=== PATIENT | male | born 1945 | race Caucasian/White ===

== ENCOUNTER 2019-04-25 00:39 | Observation (INO) ==
[2019-04-25] MEDS ORDERED: PANTOPRAZOLE 40 MG VIAL IV STA (01:03)
[2019-04-25] MEDS ORDERED: SODIUM CHLORIDE 0.9% 1,000 ML IV STA (01:03)
[2019-04-25 01:11] LABS: Basophils % 0.5 % (0.0-0.8); Eosinophils # 0.2 10*3/uL (0.0-0.87); Eosinophils % 2.1 % (0.00-10.9); Hematocrit 35.5 VOL% (42.0-52.0); Hemoglobin 12.2 GM/DL (14.0-18.0); Immature Granulocytes % 0.5 %; Immature Granulocytes Absolute 0.04 #; Lymphocytes # 2.9 10*3/uL (1.4-4.0); Lymphocytes % 39.7 % (21.2-54.2); Mean Corpuscular HGB Conc 34.4 GM/DL (32-36); Mean Corpuscular Volume 94.4 FL (87-102); Mean Platelet Volume 10.7 FL (9.6-12.0); Monocytes % 9.7 % (1.7-12.7); Neutrophils % 47.5 % (38.7-73.9); Platelet Count 158 T/CUMM (130-400); Red Blood Count 3.76 MC/CUMM (3.8-5.5); Red Cell Distribution Width 11.6 % (9.3-17.3); White Blood Count 7.3 T/CUMM (4-12)
[2019-04-25 01:17] LABS: INR 1.1; PT Patient Result 11.9 SECS (9.6-12.2); Partial Thromboplastin Time 21.9 SECS (20.8-36.0)
[2019-04-25 01:25] LABS: Albumin 3.5 G/DL (3.4-5.0); Bilirubin,Total 0.8 MG/DL (0.2-1.0); Calcium 8.1 MG/DL (8.5-10.1); Osmolality,Calculated 289.1 MOS/KG (273-304); Total Protein 6.6 G/DL (6.4-8.3)
[2019-04-25] MEDS ORDERED: ONDANSETRON 4 MG/2 ML VIAL IV PRN (03:56)
[2019-04-25] MEDS ORDERED: ACETAMINOPHEN 325 MG TABLET PO PRN (03:56)
[2019-04-25] MEDS: SODIUM CHLORIDE 0.45% 1,000 ML IV SCH ×3 (06:30→16:39)
[2019-04-25 08:02] LABS: Hematocrit 33.2 VOL% (42.0-52.0); Hemoglobin 11.2 GM/DL (14.0-18.0)
[2019-04-25 08:31] LABS: Calcium 7.8 MG/DL (8.5-10.1); Osmolality,Calculated 282.4 MOS/KG (273-304)
[2019-04-25] MEDS ORDERED: PANTOPRAZOLE 40 MG TABLET PO SCH (09:00)
[2019-04-25 13:56] LABS: Hematocrit 32.3 VOL% (42.0-52.0); Hemoglobin 10.7 GM/DL (14.0-18.0)
[2019-04-25 19:00] LABS: Hematocrit 30.7 VOL% (42.0-52.0); Hemoglobin 10.5 GM/DL (14.0-18.0)
[2019-04-25] MEDS: PANTOPRAZOLE 40 MG TABLET PO SCH (20:20)
[2019-04-26 01:17] LABS: Hematocrit 30.9 VOL% (42.0-52.0); Hemoglobin 10.3 GM/DL (14.0-18.0)
[2019-04-26] MEDS: SODIUM CHLORIDE 0.45% 1,000 ML IV SCH ×3 (06:09→15:20)
[2019-04-26 08:35] LABS: Hematocrit 31.9 VOL% (42.0-52.0); Hemoglobin 10.9 GM/DL (14.0-18.0)
[2019-04-26] MEDS: BISACODYL 5 MG TABLET PO SCH ×3 (10:06→22:00)
[2019-04-26] MEDS: PANTOPRAZOLE 40 MG TABLET PO SCH ×2 (10:06→21:07)
[2019-04-26 13:41] LABS: Hematocrit 34.4 VOL% (42.0-52.0); Hemoglobin 11.5 GM/DL (14.0-18.0)
[2019-04-26] MEDS ORDERED: POLYETHYLENE GLYCOL POWDER 255 GM BOTTLE PO ONE (18:00)
[2019-04-26] MEDS ORDERED: MAGNESIUM CITRATE 300 ML BOTTLE PO ONE (21:00)
[2019-04-27] MEDS: SODIUM CHLORIDE 0.45% 1,000 ML IV SCH (01:20)
[2019-04-27 05:16] LABS: Basophils % 0.5 % (0.0-0.8); Eosinophils # 0.2 10*3/uL (0.0-0.87); Eosinophils % 3.1 % (0.00-10.9); Hematocrit 31.6 VOL% (42.0-52.0); Immature Granulocytes % 0.4 %; Immature Granulocytes Absolute 0.02 #; Lymphocytes # 1.9 10*3/uL (1.4-4.0); Lymphocytes % 34.3 % (21.2-54.2); Mean Corpuscular HGB Conc 34.8 GM/DL (32-36); Mean Corpuscular Volume 94.9 FL (87-102); Mean Platelet Volume 10.7 FL (9.6-12.0); Monocytes % 14.4 % (1.7-12.7); Neutrophils % 47.3 % (38.7-73.9); Platelet Count 158 T/CUMM (130-400); Red Blood Count 3.33 MC/CUMM (3.8-5.5); Red Cell Distribution Width 11.6 % (9.3-17.3); White Blood Count 5.6 T/CUMM (4-12)
[2019-04-27 05:43] LABS: Calcium 8.4 MG/DL (8.5-10.1); Osmolality,Calculated 277.4 MOS/KG (273-304)
[2019-04-27] MEDS ORDERED: SODIUM CHLORIDE 0.9% 1,000 ML IV SCH (07:00)
[2019-04-27] MEDS: PANTOPRAZOLE 40 MG TABLET PO SCH (08:29)
[2019-04-27] MEDS ORDERED: LIDOCAINE 2% 5 ML VIAL ONE (10:00)
[2019-04-27] MEDS ORDERED: propofoL 200 MG/20 ML VIAL IV ONE (10:00)
[2019-04-27 15:46] VITALS: BP 135/73
== END 2019-04-27 15:45 | disposition home or self-care (01) ==
LOC: EDUNIT# → EDBD → N.ED 00:39 → N.EDINP 03:57 → SUATTDRO 03:57 → INTOOBSV 03:57 → N.EDINP 04:49 → N.4E 05:10
PROVIDERS: ADMIT Internal Medicine; ATTEND Internal Medicine

== ENCOUNTER 2022-01-06 14:32 | Inpatient (IN) ==
[2022-01-06] MEDS ORDERED: NITROGLYCERIN 2% OINT 1 INCH/GM PACK TOP STA (14:46)
[2022-01-06] MEDS ORDERED: ONDANSETRON 4 MG/2 ML VIAL IV STA (14:46)
[2022-01-06] MEDS ORDERED: MORPHINE 2 MG/1 ML SYRINGE IV STA ×2 (14:46→15:32)
[2022-01-06 14:53] LABS: Basophils % 0.3 % (0.0-0.8); Eosinophils # 0.2 10*3/uL (0.0-0.87); Hematocrit 39.2 VOL% (42.0-52.0); Hemoglobin 13.6 GM/DL (14.0-18.0); Immature Granulocytes % 0.5 %; Immature Granulocytes Absolute 0.03 #; Lymphocytes # 2.5 10*3/uL (1.4-4.0); Lymphocytes % 40.2 % (21.2-54.2); Mean Corpuscular HGB Conc 34.7 GM/DL (32-36); Mean Corpuscular Volume 92.9 FL (87-102); Mean Platelet Volume 10.2 FL (9.6-12.0); Monocytes # 0.7 10*3/uL (0.11-0.8); Monocytes % 10.5 % (1.7-12.7); Neutrophils % 45.5 % (38.7-73.9); Platelet Count 169 T/CUMM (130-400); Red Blood Count 4.22 MC/CUMM (3.8-5.5); Red Cell Distribution Width 11.8 % (9.3-17.3); White Blood Count 6.3 T/CUMM (4-12)
[2022-01-06 15:08] LABS: Albumin 3.7 G/DL (3.4-5.0); Bilirubin,Total 0.6 MG/DL (0.20-1.00); Calcium 9.1 MG/DL (8.5-10.1); Osmolality,Calculated 280.8 MOS/KG (273-304); Potassium 3.6 MMOL/L (3.5-5.1); Total Protein 7.2 G/DL (6.4-8.2)
[2022-01-06] MEDS ORDERED: DEXTROSE 10% 250 ML BAG IV PRN (15:38)
[2022-01-06] MEDS ORDERED: ONDANSETRON 4 MG/2 ML VIAL IV PRN (15:38)
[2022-01-06] MEDS ORDERED: GLUCAGON 1 MG VIAL IM PRN (15:38)
[2022-01-06] MEDS ORDERED: NITROGLYCERIN SL 0.4 MG TABLET SL PRN (16:01)
[2022-01-06] MEDS: ENOXAPARIN 100 MG/ML SYRINGE SUBCUT SCH (16:26)
[2022-01-06] MEDS ORDERED: TICAGRELOR 90 MG TABLET PO ONE (18:47)
[2022-01-06] MEDS ORDERED: POTASSIUM CHLORIDE 20 MEQ TABLET PO ONE (20:55)
[2022-01-06] MEDS: GABAPENTIN 300 MG CAPSULE PO SCH (21:49)
[2022-01-06] MEDS: METOPROLOL TARTRATE 50 MG TABLET PO SCH (21:49)
[2022-01-06] MEDS: ROSUVASTATIN 20 MG TABLET PO SCH (21:49)
[2022-01-07 05:58] LABS: Risk Ratio 4.86; VLDL Cholesterol 23.2 MG/DL
[2022-01-07] MEDS: LEVOTHYROXINE 75 MCG TABLET PO SCH (06:06)
[2022-01-07] MEDS: ENOXAPARIN 100 MG/ML SYRINGE SUBCUT SCH ×2 (06:06→16:01)
[2022-01-07] MEDS: NITROGLYCERIN 2% OINT 1 INCH/GM PACK TOP SCH ×3 (07:38→21:00)
[2022-01-07] MEDS ORDERED: MAGNESIUM SULF RIDER 2 GM/50 ML PREMIX IV PRN (07:55)
[2022-01-07] MEDS ORDERED: POTASSIUM CHLORIDE RIDER 10 MEQ/100 ML PREMIX IV PRN (07:55)
[2022-01-07] MEDS: PANTOPRAZOLE 40 MG TABLET PO SCH (08:56)
[2022-01-07] MEDS: ASPIRIN EC 81 MG TABLET PO SCH (08:56)
[2022-01-07] MEDS: METOPROLOL TARTRATE 50 MG TABLET PO SCH ×2 (08:56→21:00)
[2022-01-07] MEDS: LOSARTAN 25 MG TABLET PO SCH (08:56)
[2022-01-07] MEDS ORDERED: TEMAZEPAM 7.5 MG CAPSULE PO PRN (12:56)
[2022-01-07] MEDS: GABAPENTIN 300 MG CAPSULE PO SCH (20:59)
[2022-01-07] MEDS: ROSUVASTATIN 20 MG TABLET PO SCH (20:59)
[2022-01-08] MEDS: ENOXAPARIN 100 MG/ML SYRINGE SUBCUT SCH (04:53)
[2022-01-08] MEDS: NITROGLYCERIN 2% OINT 1 INCH/GM PACK TOP SCH ×3 (04:54→13:19)
[2022-01-08] MEDS: LEVOTHYROXINE 75 MCG TABLET PO SCH (05:32)
[2022-01-08 05:50] LABS: Basophils % 0.5 % (0.0-0.8); Eosinophils # 0.2 10*3/uL (0.0-0.87); Eosinophils % 2.4 % (0.00-10.9); Hematocrit 39.2 VOL% (42.0-52.0); Immature Granulocytes % 0.6 %; Immature Granulocytes Absolute 0.04 #; Lymphocytes # 2.1 10*3/uL (1.4-4.0); Lymphocytes % 32.4 % (21.2-54.2); Mean Corpuscular HGB Conc 33.2 GM/DL (32-36); Mean Corpuscular Volume 95.8 FL (87-102); Mean Platelet Volume 10.5 FL (9.6-12.0); Monocytes # 0.7 10*3/uL (0.11-0.8); Monocytes % 10.6 % (1.7-12.7); Neutrophils % 53.5 % (38.7-73.9); Platelet Count 162 T/CUMM (130-400); Red Blood Count 4.09 MC/CUMM (3.8-5.5); Red Cell Distribution Width 11.9 % (9.3-17.3); White Blood Count 6.3 T/CUMM (4-12)
[2022-01-08] MEDS ORDERED: SODIUM CHLORIDE 0.45% 1,000 ML IV SCH (06:00)
[2022-01-08 06:17] LABS: Calcium 8.8 MG/DL (8.5-10.1); Osmolality,Calculated 282.3 MOS/KG (273-304); Potassium 4.1 MMOL/L (3.5-5.1)
[2022-01-08] MEDS ORDERED: diphenhydrAMINE CAP 50 MG CAPSULE PO ONE (06:45)
[2022-01-08] MEDS ORDERED: DIAZEPAM 5 MG TABLET PO ONE (06:45)
[2022-01-08] MEDS ORDERED: HEPARIN/NACL 0.9% 2 UNITS/ML 2,000 UNIT/1,000 ML BAG IV ONE (07:06)
[2022-01-08] MEDS ORDERED: LIDOCAINE 1%/EPI INJ 20 ML VIAL ONE (07:06)
[2022-01-08] MEDS ORDERED: LIDOCAINE 2%/EPI 20 ML VIAL ONE ×2 (07:24→16:43)
[2022-01-08] MEDS ORDERED: MIDAZOLAM 2 MG/2 ML VIAL ONE (07:27)
[2022-01-08] MEDS ORDERED: fentaNYL 100 MCG/2 ML VIAL ONE (07:27)
[2022-01-08] MEDS ORDERED: ASPIRIN 325 MG TABLET ONE (07:34)
[2022-01-08] MEDS ORDERED: ENOXAPARIN 30 MG/0.3 ML SYRINGE ONE (07:55)
[2022-01-08] MEDS ORDERED: TIROFIBAN 5,000 MCG/100 ML PREMIX IV ONE (07:55)
[2022-01-08] MEDS ORDERED: TICAGRELOR 90 MG TABLET ONE (08:10)
[2022-01-08] MEDS ORDERED: SODIUM CHLORIDE 0.9% 1,000 ML IV SCH (09:00)
[2022-01-08] MEDS: METOPROLOL TARTRATE 50 MG TABLET PO SCH ×2 (13:13→22:50)
[2022-01-08] MEDS: PANTOPRAZOLE 40 MG TABLET PO SCH (13:17)
[2022-01-08] MEDS: LOSARTAN 25 MG TABLET PO SCH (13:17)
[2022-01-08] MEDS: ASPIRIN EC 81 MG TABLET PO SCH (13:18)
[2022-01-08] MEDS: GABAPENTIN 300 MG CAPSULE PO SCH (21:11)
[2022-01-08] MEDS: MORPHINE 2 MG/1 ML SYRINGE IV PRN (21:11)
[2022-01-08] MEDS: TICAGRELOR 90 MG TABLET PO SCH (21:11)
[2022-01-08] MEDS: ROSUVASTATIN 20 MG TABLET PO SCH (21:20)
[2022-01-09] MEDS: MORPHINE 2 MG/1 ML SYRINGE IV PRN (01:14)
[2022-01-09 01:26] LABS: Basophils % 0.4 % (0.0-0.8); Eosinophils % 0.4 % (0.00-10.9); Hematocrit 37.5 VOL% (42.0-52.0); Hemoglobin 12.9 GM/DL (14.0-18.0); Immature Granulocytes % 0.5 %; Immature Granulocytes Absolute 0.04 #; Lymphocytes # 1.5 10*3/uL (1.4-4.0); Lymphocytes % 18.1 % (21.2-54.2); Mean Corpuscular HGB Conc 34.4 GM/DL (32-36); Mean Corpuscular Volume 92.4 FL (87-102); Mean Platelet Volume 10.3 FL (9.6-12.0); Monocytes # 0.8 10*3/uL (0.11-0.8); Monocytes % 10.1 % (1.7-12.7); Neutrophils % 70.5 % (38.7-73.9); Platelet Count 162 T/CUMM (130-400); Red Blood Count 4.06 MC/CUMM (3.8-5.5); Red Cell Distribution Width 11.9 % (9.3-17.3); White Blood Count 8.2 T/CUMM (4-12)
[2022-01-09] MEDS: LEVOTHYROXINE 75 MCG TABLET PO SCH (06:26)
[2022-01-09] MEDS ORDERED: LIDOCAINE 2%/EPI 20 ML VIAL ONE (07:45)
[2022-01-09 08:06] LABS: Calcium 8.3 MG/DL (8.5-10.1); Osmolality,Calculated 274.8 MOS/KG (273-304); Potassium 3.8 MMOL/L (3.5-5.1)
[2022-01-09] MEDS: PANTOPRAZOLE 40 MG TABLET PO SCH (09:31)
[2022-01-09] MEDS: LOSARTAN 25 MG TABLET PO SCH (09:31)
[2022-01-09] MEDS: ASPIRIN EC 81 MG TABLET PO SCH (09:31)
[2022-01-09] MEDS: TICAGRELOR 90 MG TABLET PO SCH (09:32)
[2022-01-09] MEDS: METOPROLOL TARTRATE 50 MG TABLET PO SCH (09:32)
[2022-01-09] MEDS ORDERED: LACTULOSE 20 GM/30 ML UDCUP PO ONE (10:43)
[2022-01-09 12:11] VITALS: BP 99/72
== END 2022-01-09 15:08 | disposition home or self-care (01) | DRG 247 ==
LOC: N.ED 14:32 → N.EDINP 14:32 → SUATTDRO 15:36 → N.TELES 16:30
PROVIDERS: ADMIT Emergency Medicine; ATTEND Family Medicine
PROC: CLCCHCL (ICD-10-PCS; 2022-01-08 07:45)